=== PATIENT | male | born 2000 | race African-American/Black ===

== ENCOUNTER 2020-12-06 10:45 | Emergency (ER) | payer OTHER ==
[~2020-12-06] VITALS: Ht 172.7 cm; Wt 68.5 kg
--- NOTE | 2020-12-06 11:44 | REP ---
INDICATION: abdominal pain hx constipation. COMPARISON: None. TECHNIQUE: Single supine view of the abdomen. FINDINGS: Bowel gas pattern is normal. Air and stool is seen in a nondistended colon. No small or large bowel dilation is seen. The psoas margins in the flank stripes are intact. No mass, organomegaly, or pathologic calcification is seen. IMPRESSION: Negative KUB. <Electronically signed by uDstin Gonsalez > 12/06/20 [id number]
[2020-12-06] MEDS ORDERED: COLA1TAB PO (13:15)
[2020-12-06 13:33] VITALS: BP 116/64
== END 2020-12-06 13:35 | disposition home or self-care (01) ==
LOC: M ED 10:45
DX: R10.9 Unspecified abdominal pain (principal); K59.00 Constipation, unspecified; R11.0 Nausea

== ENCOUNTER 2020-12-10 17:57 | Emergency (ER) | payer OTHER ==
[~2020-12-10] VITALS: Ht 172.7 cm; Wt 65.1 kg
[~2020-12-10 17:57] MED LIST: COLA1TAB PO
[2020-12-10] MEDS ORDERED: ONDANSETRON 4MG/2ML VIAL IV ONE (18:20)
[2020-12-10] MEDS ORDERED: KETOROLAC 30 MG/ML 1ML VIAL IV ONE (18:20)
[2020-12-10] MEDS ORDERED: PANTOPRAZOLE 40MG VIAL (C9113 PER 1) IV ONE (18:20)
[2020-12-10] MEDS ORDERED: NS 1,000 ML IV ONE (18:20)
[2020-12-10 18:55] LABS: BASO # 0.1 10^3/uL (0.0-0.2); BASO % 0.9 % (0.0-1.0); EOS # 0.2 10^3/uL (0.0-0.5); EOS % 4.2 % (0.0-3.0); HEMATOCRIT 42.5 % (42.0-52.0); HEMOGLOBIN 14.5 g/dl (13.5-17.5); LYMPH % 34.6 % (24.0-44.0); MEAN CORPUSCULAR HEMOGLOBIN 25.8 pg (27.0-33.0); MEAN CORPUSCULAR HGB CONC 34.1 g/dl (32.0-36.5); MEAN CORPUSCULAR VOLUME 75.5 fl (80.0-96.0); MONO # 0.6 10^3/uL (0.0-0.8); MONO % 10.7 % (2.0-8.0); NEUTROPHILS # 2.8 10^3/uL (1.5-8.5); NEUTROPHILS % 49.4 % (36.0-66.0); PLATELET COUNT, AUTOMATED 279 10^3/uL (150-450); RED BLOOD COUNT 5.63 10^6/uL (4.30-6.10); WHITE BLOOD COUNT 5.7 10^3/uL (4.0-10.0)
[2020-12-10 19:19] LABS: ALBUMIN 4.1 GM/DL (3.2-5.2); BILIRUBIN,DIRECT 0.1 MG/DL (0.0-0.2); BILIRUBIN,TOTAL 0.3 MG/DL (0.2-1.0); TOTAL PROTEIN 7.7 GM/DL (6.4-8.2)
[2020-12-10] MEDS ORDERED: ISOVUE-370 76% 100ML VIAL As Ordered ONE (19:30)
--- NOTE | 2020-12-10 20:49 | REPVR ---
PROCEDURE INFORMATION: Exam: CT Abdomen And Pelvis With Contrast Exam date and time: 12/10/2020 8:24 PM Age: 20 years old Clinical indication: Abdominal pain; Localized; Upper; Additional info: Upper abd pain TECHNIQUE: Imaging protocol: Computed tomography of the abdomen and pelvis with contrast. Radiation optimization: All CT scans at this facility use at least one of these dose optimization techniques: automated exposure control; mA and/or kV adjustment per patient size (includes targeted exams where dose is matched to clinical indication); or iterative reconstruction. Contrast material: ISOVUE 370; Contrast volume: 100 ml; Contrast route: INTRAVENOUS (IV); COMPARISON: CO Abdomen,Flat Plate KUB 12/06/2020 11:23 AM FINDINGS: Liver: Normal. No mass. Gallbladder and bile ducts: Normal. No calcified stones. No ductal dilation. Pancreas: Normal. No ductal dilation. Spleen: Normal. No splenomegaly. Adrenal glands: Normal. No mass. Kidneys and ureters: Normal. No hydronephrosis. Stomach and bowel: Unremarkable. No obstruction. No mucosal thickening. Appendix: No evidence of appendicitis. Intraperitoneal space: Unremarkable. No free air. No significant fluid collection. Vasculature: Unremarkable. No abdominal aortic aneurysm. Lymph nodes: Unremarkable. No enlarged lymph nodes. Urinary bladder: Unremarkable as visualized. Reproductive: Unremarkable as visualized. Bones/joints: Unremarkable. No acute fracture. Soft tissues: Unremarkable. IMPRESSION: No acute findings. Electronically signed by: Juanito Landa On 12/10/2020 20:49:10 PM
[2020-12-10] MEDS ORDERED: PANT40TA29 PO (21:01)
[2020-12-10 21:12] VITALS: BP 117/79
== END 2020-12-10 21:14 | disposition home or self-care (01) ==
LOC: M ED 17:57
DX: K21.9 Gastro-esophageal reflux disease without esophagitis (principal); R11.2 Nausea with vomiting, unspecified; K59.00 Constipation, unspecified
CPT/HCPCS: 36415; 74177; 80047; 80076; 81001; 83690; 85025; 96361; 96374; 96375; 99284; C9113; J1885; J2405; Q9967

== ENCOUNTER 2022-01-30 12:09 | Day surgery (SDC) | payer OTHER ==
[~2022-01-30] VITALS: Ht 172.7 cm; Wt 66.2 kg
[~2022-01-30 12:09] MED LIST changes: +NS 1,000 ML IV ONE; +PANT40TA29 PO
[2022-01-30] MEDS ORDERED: fentaNYL 100 MCG/2 ML INJECTION As Ordered ONE (13:34)
[2022-01-30] MEDS ORDERED: propofoL 200 MG/20 ML VIAL As Ordered ONE (13:34)
[2022-01-30 14:05] VITALS: BP 127/61
== END 2022-01-30 14:29 | disposition home or self-care (01) ==
LOC: M OPP 12:09
PROVIDERS: ATTEND Internal Medicine Gastroenterology
DX: K29.60 Other gastritis without bleeding (principal); B96.81 Helicobacter pylori [H. pylori] as the cause of diseases classified elsewhere; K21.9 Gastro-esophageal reflux disease without esophagitis; R12 Heartburn; Z79.899 Other long term (current) drug therapy
CPT/HCPCS: 43239; 88305; J3010